=== PATIENT | male | born 1950 | race Caucasian/White ===

== ENCOUNTER 2024-07-28 19:24 | Emergency (ER) | payer MEDICARE ==
[~2024-07-28] VITALS: Ht 170.2 cm; Wt 98.0 kg
[2024-07-28 22:30] VITALS: TEMP 97.9
[2024-07-28 23:17] LABS: BASOPHILS % (AUTO) 0.4 % (0.0-2.0); HEMATOCRIT 33.2 % (41-53); HEMOGLOBIN 10.4 g/dL (13.5-17.5); LYMPHOCYTES # (AUTO) 1.8 K/uL (1.0-4.8); LYMPHOCYTES % (AUTO) 28.2 % (22.0-44.0); MEAN CORPUSCULAR HEMOGLOBIN 24.7 pg (26.0-34.0); MEAN CORPUSCULAR HGB CONC 31.3 G/dL (31.0-37.0); MEAN CORPUSCULAR VOLUME 79 fL (80-100); MONOCYTES # (AUTO) 0.4 K/uL (0.1-1.0); NEUTROPHILS # (AUTO) 4.1 K/uL (1.8-7.7); NEUTROPHILS % (AUTO) 63.4 % (40.0-70.0); PLATELET COUNT (AUTO) 174 K/uL (150-450); RED BLOOD CELL COUNT(AUTO) 4.19 MIL/uL (4.50-5.90); RED CELL DISTRIBUTION WIDTH 18.4 % (11.5-14.5); WHITE BLOOD COUNT (AUTO) 6.4 K/uL (4.5-11.0)
[2024-07-28 23:31] LABS: ANION GAP 7 mmol/L (8-16); CALCIUM, TOTAL 7.8 mg/dL (8.8-10.5); CARBON DIOXIDE 30 mmol/L (22-29); CHLORIDE 104 mmol/L (98-107); CREATININE 0.66 mg/dL (0.60-1.30); GLOMERULAR FILTR. RATE CALC > 60 mL/min (>60); GLUCOSE,RANDOM 106 mg/dL (70-110); POTASSIUM 3.7 mmol/L (3.5-5.1); SODIUM SERUM 141 mmol/L (136-145); UREA NITROGEN, BLOOD 14 mg/dL (7-18)
[2024-07-29 04:00] VITALS: BP 133/67; PULSE 64; RESP 16; O2SAT 95
== END 2024-07-29 06:13 | disposition home or self-care (01) ==
LOC: EMS 19:24
DX: D64.9 Anemia, unspecified (principal); R26.2 Difficulty in walking, not elsewhere classified; J44.9 Chronic obstructive pulmonary disease, unspecified; I10 Essential (primary) hypertension
CPT/HCPCS: 80048; 85025; 99283

== ENCOUNTER 2024-08-25 10:56 | Inpatient (IN) | payer MEDICARE ==
[~2024-08-25] VITALS: Ht 175.3 cm; Wt 68.9 kg
[2024-08-25] MEDS: IPRATROPIUM BROMIDE 0.5 MG/2.5 ML NEB SOLUTION NEB ONE (11:52)
[2024-08-25] MEDS: ALBUTEROL SULFATE 2.5 MG/0.5 ML NEB SOLUTION NEB ONE (11:52)
[2024-08-25 11:54] VITALS: PULSE 73; RESP 14; O2SAT 91
[2024-08-25 11:59] LABS: COVID AG,FIA SOURCE NASAL SWAB
[2024-08-25 12:03] LABS: BASOPHILS % (AUTO) 0.6 % (0.0-2.0); EOSINOPHILS % (AUTO) 2.3 % (1.0-6.0); HEMOGLOBIN 12.7 g/dL (13.5-17.5); LYMPHOCYTES # (AUTO) 1.3 K/uL (1.0-4.8); LYMPHOCYTES % (AUTO) 31.4 % (22.0-44.0); MEAN CORPUSCULAR HEMOGLOBIN 24.2 pg (26.0-34.0); MEAN CORPUSCULAR VOLUME 78 fL (80-100); MONOCYTES # (AUTO) 0.2 K/uL (0.1-1.0); MONOCYTES % (AUTO) 5.5 % (2.0-9.0); NEUTROPHILS # (AUTO) 2.4 K/uL (1.8-7.7); NEUTROPHILS % (AUTO) 60.2 % (40.0-70.0); PLATELET COUNT (AUTO) 194 K/uL (150-450); RED BLOOD CELL COUNT(AUTO) 5.25 MIL/uL (4.50-5.90); RED CELL DISTRIBUTION WIDTH 18.1 % (11.5-14.5); WHITE BLOOD COUNT (AUTO) 4.1 K/uL (4.5-11.0)
[2024-08-25 12:09] VITALS: PULSE 81; RESP 16; O2SAT 100
[2024-08-25 12:12] LABS: ANION GAP 9 mmol/L (8-16); CALCIUM, TOTAL 9.4 mg/dL (8.8-10.5); CARBON DIOXIDE 27 mmol/L (22-29); CHLORIDE 102 mmol/L (98-107); CREATININE 0.68 mg/dL (0.60-1.30); GLOMERULAR FILTR. RATE CALC > 60 mL/min (>60); GLUCOSE,RANDOM 113 mg/dL (70-110); POTASSIUM 3.7 mmol/L (3.5-5.1); SODIUM SERUM 138 mmol/L (136-145); UREA NITROGEN, BLOOD 6 mg/dL (7-18)
[2024-08-25] MEDS: MethylPREDNISolone SOD SUCC 125 MG/2 ML VIAL IVP ONE (12:13)
[2024-08-25 12:20] LABS: TROPONIN I-HIGH SENSITIVITY 10 ng/L (<76)
[2024-08-25 12:21] LABS: SARS-COV2 (COVID) ANTIGEN,FIA Negative (Negative)
[2024-08-25 12:22] LABS: ALANINE AMINOTRANSFERASE 16 U/L (12-78); ALBUMIN 3.1 g/dL (3.4-5.0); ALKALINE PHOSPHATASE 101 U/L (46-116); ASPARTATE AMINOTRANSFERASE 12 U/L (15-37); BILIRUBIN,TOTAL 0.8 mg/dL (0.1-1.0); CREATINE KINASE, TOTAL ONLY 18 U/L (39-308)
[2024-08-25 12:22] LABS: INFLUENZA TYPE A NEGATIVE FOR TYPE A (NEGATIVE); INFLUENZA TYPE B POSITIVE FOR TYPE B (NEGATIVE)
[2024-08-25 12:24] LABS: B-TYPE NATRIURETIC PEPTIDE 76 pg/mL (0-100)
[2024-08-25] MEDS ORDERED: ONDANSETRON HCL 4 MG/2 ML VIAL IVP PRN (13:15)
[2024-08-25 15:07] VITALS: BP 131/74; PULSE 88; RESP 18; TEMP 98.6; O2SAT 93
[2024-08-25 16:24] LABS: TROPONIN I-HIGH SENSITIVITY 8 ng/L (<76)
[2024-08-25] MEDS ORDERED: SODIUM CHLORIDE 0.9% 250 ML IV ONE (17:34)
[2024-08-25] MEDS: HEPARIN SODIUM,PORCINE 5,000 UNITS/ML VIAL SQ SCH (17:42)
[2024-08-25] MEDS: CefTRIAXone 1 GM/DEXTROSE 50 ML IV SCH (17:42)
[2024-08-25 19:41] VITALS: BP 126/76; PULSE 84; RESP 18; TEMP 97.6; O2SAT 94
[2024-08-25] MEDS: DOXYCYCLINE HYCLATE 100 MG TABLET PO SCH (20:37)
[2024-08-25] MEDS: DOCUSATE SODIUM 100 MG CAPSULE PO SCH (20:37)
[2024-08-25 23:52] VITALS: BP 147/81; PULSE 81; RESP 18; TEMP 97.6; O2SAT 92
[2024-08-26] VITALS (8 sets, daily range): BP systolic 136–156; BP diastolic 71–87; PULSE 65–98; RESP 16–18; TEMP 97.6–98.4; O2SAT 91–97
[2024-08-26] MEDS: ACETAMINOPHEN 325 MG TABLET PO PRN (03:18)
[2024-08-26 08:36] LABS: BASOPHILS % (AUTO) 0.3 % (0.0-2.0); EOSINOPHILS % (AUTO) 0 % (1.0-6.0); HEMATOCRIT 40.8 % (41-53); LYMPHOCYTES # (AUTO) 0.6 K/uL (1.0-4.8); LYMPHOCYTES % (AUTO) 13.1 % (22.0-44.0); MEAN CORPUSCULAR HEMOGLOBIN 24.6 pg (26.0-34.0); MEAN CORPUSCULAR HGB CONC 31.8 G/dL (31.0-37.0); MEAN CORPUSCULAR VOLUME 77 fL (80-100); MONOCYTES # (AUTO) 0.1 K/uL (0.1-1.0); MONOCYTES % (AUTO) 3.1 % (2.0-9.0); NEUTROPHILS # (AUTO) 3.8 K/uL (1.8-7.7); NEUTROPHILS % (AUTO) 83.5 % (40.0-70.0); PLATELET COUNT (AUTO) 212 K/uL (150-450); RED BLOOD CELL COUNT(AUTO) 5.27 MIL/uL (4.50-5.90); RED CELL DISTRIBUTION WIDTH 17.9 % (11.5-14.5); WHITE BLOOD COUNT (AUTO) 4.5 K/uL (4.5-11.0)
[2024-08-26] MEDS: MethylPREDNISolone SOD SUCC 125 MG/2 ML VIAL IVP SCH (08:48)
[2024-08-26 09:11] LABS: ANION GAP 13 mmol/L (8-16); CALCIUM, TOTAL 9.6 mg/dL (8.8-10.5); CARBON DIOXIDE 25 mmol/L (22-29); CHLORIDE 100 mmol/L (98-107); CREATININE 0.59 mg/dL (0.60-1.30); GLOMERULAR FILTR. RATE CALC > 60 mL/min (>60); GLUCOSE,RANDOM 123 mg/dL (70-110); POTASSIUM 3.8 mmol/L (3.5-5.1); SODIUM SERUM 138 mmol/L (136-145); UREA NITROGEN, BLOOD 12 mg/dL (7-18)
[2024-08-26] MEDS: IPRATROPIUM BROMIDE 0.5 MG/2.5 ML NEB SOLUTION NEB PRN (14:41)
[2024-08-26] MEDS: ALBUTEROL SULFATE 2.5 MG/0.5 ML NEB SOLUTION NEB PRN (14:41)
[2024-08-26] MEDS ORDERED: SODIUM CHLORIDE 0.9% 250 ML IV ONE (16:37)
[2024-08-26] MEDS: OSELTAMIVIR PHOSPHATE 75 MG CAPSULE PO SCH (21:30)
[2024-08-27 05:40] VITALS: BP 145/91; PULSE 86; RESP 18; TEMP 98.1; O2SAT 96
[2024-08-27 08:11] VITALS: BP 152/86; PULSE 81; RESP 18; TEMP 98.3; O2SAT 96
[2024-08-27] MEDS ORDERED: IPRA4AER IH (08:38)
[2024-08-27] MEDS ORDERED: LEVO-72 PO (08:38)
[2024-08-27] MEDS ORDERED: OSEL75CA17 PO (08:38)
[2024-08-27] MEDS ORDERED: FLUT1BLS IH (08:38)
[2024-08-27 15:32] VITALS: BP 156/83; PULSE 87; RESP 18; TEMP 98.1; O2SAT 95
== END 2024-08-27 17:15 | disposition home health service (06) | DRG 190 ==
LOC: EMS 10:56 → EDH 12:57 → 5S 14:00 → 6N 08-26 13:36
PROVIDERS: ADMIT Internal Medicine; ATTEND Internal Medicine
DX: J44.1 Chronic obstructive pulmonary disease with (acute) exacerbation (principal); J18.0 Bronchopneumonia, unspecified organism; J98.11 Atelectasis; J10.08 Influenza due to other identified influenza virus with other specified pneumonia; I10 Essential (primary) hypertension; F20.9 Schizophrenia, unspecified; I69.398 Other sequelae of cerebral infarction; F32.A Depression, unspecified; F41.9 Anxiety disorder, unspecified; G89.29 Other chronic pain; Z20.822 Contact with and (suspected) exposure to COVID-19; J44.0 Chronic obstructive pulmonary disease with (acute) lower respiratory infection
CPT/HCPCS: 71045; 71250; 80048; 80053; 82550; 83735; 83880; 84484; 85025; 87804; 93005; 94640; 97110; 97163; 97530; 99285; J0696; J1644; J2919; J7050; 36415-L1; 36415-TC; J7613